=== PATIENT | male | born 2000 | race Caucasian/White ===

== ENCOUNTER 2023-06-02 08:13 | Day surgery (SDC) | payer OTHER ==
[~2023-06-02] VITALS: Ht 182.9 cm; Wt 103.7 kg
[2023-06-02] VITALS (14 sets, daily range): BP systolic 119–150; BP diastolic 65–88
[~2023-06-02 08:13] MED LIST: Ampicillin Sod/Sulbactam Sod 3 GM in NS 100 ML IV SCH; Lactated Ringer's 1,000 ML IV SCH
[2023-06-02] MEDS ORDERED: Ampicillin Sod/Sulbactam Sod 3 GM ONE (08:58)
--- NOTE | 2023-06-02 09:12 | NUR ---
Ambulatory in Day Surgery History, Chart, Medications and Allergies reviewed before start of procedure. Pre-Op teaching done. Pt verbalizes understanding. Patient States Post-Procedure ride home has been arranged.
[2023-06-02] MEDS ORDERED: Bupivacaine 0.5% HCl 5 MG/ML 30MLVIAL ONE (09:23)
[2023-06-02] MEDS ORDERED: Midazolam HCl 1MG / ML 2ML Vial IV SCH (09:25)
[2023-06-02] MEDS ORDERED: FentaNYL Citrate 50 MCG/ML 2 ML Injection ONE (09:34)
[2023-06-02] MEDS ORDERED: propofoL 20 ML IV ONE (09:34)
[2023-06-02] MEDS ORDERED: EpiNEPhrine 1 MG/1 ML 1ML Vial ONE (09:35)
[2023-06-02] MEDS ORDERED: Rocuronium Bromide 10 MG/ML 5ML Injection IV ONE ×3 (09:35→10:45)
[2023-06-02] MEDS ORDERED: Dexamethasone Sod Phos 10 MG/ML 1ML VIAL ONE (09:38)
[2023-06-02] MEDS ORDERED: Ondansetron HCl 2 MG / ML 2ML Vial ONE (09:38)
[2023-06-02] MEDS ORDERED: Ketorolac Tromethamine 30mg Vial ONE (09:38)
[2023-06-02] MEDS ORDERED: HYDROmorphone HCl/Pf 1MG SYR IV PRN (10:25)
[2023-06-02] MEDS ORDERED: Albuterol 2.5 MG/3 ML VIAL INH PRN (10:25)
[2023-06-02] MEDS ORDERED: FentaNYL Citrate 50 MCG/ML 2 ML Injection IV PRN (10:25)
[2023-06-02] MEDS ORDERED: Droperidol 5 mg/2 ml Vial IV PRN (10:30)
[2023-06-02] MEDS ORDERED: HYDROmorphone HCl/Pf 1MG SYR ONE (11:09)
[2023-06-02] MEDS ORDERED: Sugammadex Sodium 200 MG/2ML SDV (100 MG/ML) ONE (11:10)
[2023-06-02] MEDS ORDERED: HYDROcodone 5-APAP 325 TAB PO PRN (11:50)
[2023-06-02] MEDS ORDERED: Droperidol 5 mg/2 ml Vial ONE (12:49)
--- NOTE | 2023-06-02 13:53 | NUR ---
Patient up to Ambulate independently. Gait steady. Discharge instructions reviewed with patient. Patient verbalizes understanding. Copy given to patient to take home. Dressing to procedure site clean, dry, and intact with REGINA drain in place. Scant amount red serosanguineous drainage noted. Patient States Post-Procedure ride home has been arranged with Mother. Discharged via wheelchair to private car for ride home.
== END 2023-06-02 13:51 | disposition home or self-care (01) ==
LOC: ORSCMMR 08:13 → ORD 09:30 → ORSCMMR 13:51
PROVIDERS: Surgery
PROC: 0HX8XZZ Transfer Buttock Skin, External Approach (ICD-10-PCS; principal; 2023-06-02 09:30)
PROC: 0JB90ZZ Excision of Buttock Subcutaneous Tissue and Fascia, Open Approach (ICD-10-PCS; principal; 2023-06-02 09:30)
DX: L05.91 Pilonidal cyst without abscess (principal)
CPT/HCPCS: 88304; A9270; J0171; J0295; J1100; J1170; J1790; J1885; J2250; J2405; J2704; J3010; J7120

== ENCOUNTER → 2023-08-03 | Outpatient (CLI) | payer OTHER ==
[2023-08-04 12:12] LABS: Campylobacter Sp Not Detected (NOT DETECT); Plesiomonas Shigelloides Not Detected (NOT DETECT); Salmonella Sp Not Detected (NOT DETECT); Vibrio Sp Not Detected (NOT DETECT); Yersinia Enterocolitica Not Detected (NOT DETECT)
[2023-08-04 12:13] LABS: Adenovirus F 40/41 Not Detected (NOT DETECT); Astrovirus Not Detected (NOT DETECT); Cryptosporidium Not Detected (NOT DETECT); Cyclospora Cayetanensis Not Detected (NOT DETECT); E. Coli O157 Not Detected (NOT DETECT); Entamoeba Histolytica Not Detected (NOT DETECT); Enteroaggregative E. coli-EAEC Not Detected (NOT DETECT); Enteropathogenic E. coli-EPEC Not Detected (NOT DETECT); Enterotoxigenic E. coli-ETEC Not Detected (NOT DETECT); Giardia Lamblia Not Detected (NOT DETECT); Norovirus GI/GII Not Detected (NOT DETECT); Rotavirus A Not Detected (NOT DETECT); Sapovirus Not Detected (NOT DETECT); Shiga Toxin-prod E. coli-STEC Not Detected (NOT DETECT); Shigella/Enteroin E. coli-EIEC Not Detected (NOT DETECT); Vibrio Cholerae Not Detected (NOT DETECT)
== END | disposition home or self-care (01) ==
LOC: LAB SHORT 17:30 → LAB 17:30
PROVIDERS: Physician Assistant
DX: R19.7 Diarrhea, unspecified (principal)
CPT/HCPCS: 87324; 87507

== ENCOUNTER 2023-08-11 01:45 | Emergency (ER) | payer OTHER ==
[~2023-08-11] VITALS: Ht 182.9 cm; Wt 104.3 kg
[2023-08-11] MEDS ORDERED: Ibuprofen 600 MG Tab PO ONE (04:20)
[2023-08-11] MEDS ORDERED: Acetaminophen 500 MG Tab PO ONE (04:20)
[2023-08-11 05:19] LABS: Influenza A, PCR NEGATIVE (NEGATIVE); Influenza B, PCR NEGATIVE (NEGATIVE); Resp Syncytial Virus, PCR NEGATIVE (NEGATIVE); SARS-Cov-2 (COVID-19) PCR, MMC NEGATIVE (NEGATIVE)
[2023-08-11 06:11] VITALS: BP 118/70
== END 2023-08-11 06:08 | disposition home or self-care (01) ==
LOC: ER 01:45
PROVIDERS: Emergency Medicine
DX: M79.10 Myalgia, unspecified site (principal); B34.9 Viral infection, unspecified
CPT/HCPCS: 0241U; 73552; 99284-25; A9270